=== PATIENT | female | born 1960 | race Caucasian/White ===

== ENCOUNTER 2017-04-18 09:42 | Emergency (ER) | payer MEDICAID, OTHER ==
[~2017-04-18] VITALS: Ht 157.5 cm; Wt 85.9 kg
[2017-04-18 09:50] VITALS: Ht 157.5 cm; Wt 85.9 kg
[2017-04-18] MEDS ORDERED: BENZ100C70 PO (10:12)
[2017-04-18] MEDS ORDERED: FLUT9.9S NASAL (10:12)
[2017-04-18] MEDS ORDERED: CETI10CA PO (10:12)
[2017-04-18] MEDS ORDERED: IBUP-1542 PO (10:12)
--- NOTE | 2017-04-18 10:24 | ERD ---
ER Documentation Chief Complaint Chief Complaint Pt presents with flu-like symptoms X 2-3 days. HPI 57 year old sheri comes in with sore throat, congestion and cough for 2 days. Patient reports a dry cough, low grade fever and clear mucous production. Sick contact includes her granddaughter at home. No shortness of breath, chest pain. ROS All systems reviewed and are negative except as per history of present illness. Medications Home Meds Active Scripts Cetirizine Hcl* (Zyrtec*) 10 Mg Capsule, 10 MG PO DAILY, #10 TAB.CHEW Prov:NICK HARRIS PA-C 04/18/17 Fluticasone Propionate (Flonase Allergy Relief) 9.9 Ml [place].susp, 1 SPRAY NASAL BID, #1 BOTTLE TO EACH NOSTRIL Prov:NICK HARRIS PA-C 04/18/17 Ibuprofen* (Motrin*) 600 Mg Tab, 600 MG PO Q6, #15 TAB Prov:NICK HARRIS PA-C 04/18/17 Benzonatate* (Tessalon Perle*) 100 Mg Capsule, 100 MG PO Q8H Y for COUGH, #30 CAP Prov:NICK HARRIS PA-C 04/18/17 Physical Exam Vitals Vital Signs Date Time Temp Pulse Resp B/P Pulse Ox O2 Delivery O2 Flow Rate FiO2 04/18/17 09:50 99.8 82 18 138/78 97 Physical Exam General: Well-developed, well-nourished. The patient appears in no acute distress. HEENT: Head is normocephalic, atraumatic. No scleral icterus. TMs normal, throat is clear Neck: Supple. Nontender. Lungs: Clear to auscultation. Normal air movement. Heart: Regular rate and rhythm. S1 and S2 are normal. No murmurs, gallops, or rubs. Abdomen: Nondistended. Extremities: No clubbing or cyanosis. Moving extremities x 4. No weakness. Neurologic: Alert and oriented 3. No focal deficits. Normal speech and gait. Skin: Normal turgor. No rash or lesions. Procedures/MDM The patient is a 57 year old female who comes in with an acute upper respiratory infection, presumed viral. The patient has a differential diagnosis of a viral upper respiratory infection, bacterial upper respiratory infection, bronchitis, pneumonia, pharyngitis, laryngitis, epiglottitis, croup, pneumonia. Patient has a normal pulmonary examination, clear breath sounds, normal pulse oximetry, with no corrective measures needed at this time. Fluids, rest, antipyretics were encouraged. 57-year-old female Departure Diagnosis: Primary Impression: URI (upper respiratory infection) Condition: Good Patient Instructions: Uri, Viral, No Abx (Adult) NICK HARRIS PA-C Apr 18, 2017 10:24
== END 2017-04-18 10:45 | disposition home or self-care (01) ==
LOC: FTE 09:42
DX: J06.9 Acute upper respiratory infection, unspecified (principal)
CPT/HCPCS: 99283